=== PATIENT | female | born 1955 | race Caucasian/White ===

== ENCOUNTER 2016-06-10 10:25 | Emergency (ER) | payer OTHER ==
[~2016-06-10] VITALS: Ht 160 cm; Wt 85.5 kg
[~2016-06-10 10:25] MED LIST: FLNIN NAE
[2016-06-10 10:34] VITALS: TEMP 37.6; Ht 160 cm; Wt 85.5 kg
[2016-06-10] MEDS ORDERED: ALBUT/IPRATROP 3MG/0.5MG NEB 3 ML VIAL INH STA (11:10)
[2016-06-10] MEDS ORDERED: ONDANSETRON INJ 2 MG/ML 2 ML VIAL IV STA (11:10)
[2016-06-10] MEDS ORDERED: ACETAMINOPHEN 500 MG TAB PO STA (11:10)
[2016-06-10] MEDS ORDERED: GI COCKTAIL PO ONE (11:15)
[2016-06-10] MEDS ORDERED: PSEU60TA80 PO (11:23)
[2016-06-10] MEDS ORDERED: IBUP-103 PO (11:23)
[2016-06-10] MEDS ORDERED: LIDOCAINE HCL 2% VISC SOLN 20 ML UDC ONE (11:33)
[2016-06-10] MEDS ORDERED: ALUMINUM/MAGNESIUM SUSP 30 ML UDC ONE (11:33)
[2016-06-10 12:13] LABS: BASO % 0.2 %; BASO ABS # 0.02 K/uL (0-0.2); COMPLETE YES; EOS % 0.2 %; HEMATOCRIT 39.8 % (37-47); IG% 0.2 %; LYMPH % 9.6 %; LYMPH ABS # 0.85 K/uL (1.2-3.4); MEAN CELL VOLUME 93.6 fL (80-100); MEAN CORPUSCULAR HEMOGLOBIN 33.2 pg (25-34); MEAN CORPUSCULAR HGB CONC 35.4 g/dl (32-36); MEAN PLATELET VOLUME 9.6 fL (7.4-10.4); MONO % 9.8 %; PLATELET COUNT 262 K/uL (130-400); RED BLOOD COUNT 4.25 M/uL (4.2-5.4); WHITE BLOOD COUNT 8.85 K/uL (4.8-10.8)
[2016-06-10 12:19] LABS: POINT OF CARE TROPONIN I 0.01 ng/ml (0-0.045)
[2016-06-10 12:34] LABS: URINE APPEARANCE CLOUDY (CLEAR); URINE COLOR DK YELLOW; URINE EPITHELIAL CELL AUTO >30 /lpf (0-5); URINE NITRITE NEG (NEG); URINE SPECIFIC GRAVITY 1.043 (1.000-1.030); UROBILINOGEN NEG (NEG)
[2016-06-10 12:52] LABS: ALT/SGPT 36 U/L (12-78); AST/SGOT 18 U/L (15-37); BLOOD UREA NITROGEN 15 mg/dl (7-18); BUN/CREATININE RATIO 15.8 (10-20); CALCIUM 8.8 mg/dl (8.5-10.1); CARBON DIOXIDE 23 mmol/L (21-32); CHLORIDE 104 mmol/L (98-107); CREATININE 0.94 mg/dl (0.60-1.20); GLUCOSE 100 mg/dl (70-99); POTASSIUM 3.8 mmol/L (3.5-5.1); SODIUM 139 mmol/L (136-145)
[2016-06-10 12:55] LABS: MANUAL MICROSCOPIC REQUIRED? NO; REVIEW REQ? YES; URINE BILIRUBIN NEG (NEG)
[2016-06-10 12:56] LABS: ALB/GLOB RATIO 1.2 (0.9-2); ALKALINE PHOSPHATASE 77 U/L (45-117)
--- NOTE | 2016-06-10 13:00 | DIAGNOSTIC IMAGING REPORT ---
TWO VIEW CHEST CLINICAL HISTORY: Dyspnea. FINDINGS: PA and lateral chest radiographs are compared to study dated 02/19/2011. The cardiomediastinal silhouette is unremarkable. The lungs and pleural spaces are clear. There is no pneumothorax. The skeletal structures are osteopenic. The bony thorax appears intact. IMPRESSION: No active disease in the chest. Electronically signed by: Sander Jacobs M.D. 06/10/2016 12:58 PM
[2016-06-10] MEDS ORDERED: OSEL75CA12 PO (13:47)
[2016-06-10 14:04] VITALS: BP 105/76; PULSE 74; O2SAT 95
--- NOTE | 2016-06-11 21:55 | EMERGENCY ROOM VISIT NOTE ---
ED Visit Note First contact with patient: 11:01 Chief Complaint: Cough, chest discomfort and fever. History of Present Illness: Ms. Kellogg is a 60-year-old white female who ambulates into the ED complaining of cough, chest tightness and burning and fever. Historically patient reports she has a history of bronchitis and pneumonia but no chronic pulmonary diseases. Patient reports she has not been feeling well since Thanks. She reports she's been having a mild cough, sinus pressure, and nasal drainage. She was seen once by her PCP and was felt to have a sinus infection and was prescribed amoxicillin. She did not think this resolved any of her symptoms. Patient reports over last 12-24 hours she reports her symptoms have exacerbated and she has developed a fever with her cough. Additionally she reports she is now having a chest tightness and burning sensation through the mid sternal area. She rates this discomfort 8/10. The pain is nonradiating. Pain worsens with cough. She has not identified any alleviating factors related to the pain. She has taken ibuprofen for her fever but had no relief of her chest discomfort. Associated with her pain and cough she reports that she is minimally productive of a clearish sputum, intermittently she hears herself wheezing, she has nausea but has not vomited and last night she developed a fever. She denies skin eruptions, skin color changes, headache, neck/back pain, palpitations, orthopnea, dependent edema, dyspnea on exertion, hemoptysis, abdominal pain, decreased appetite, urinary symptoms, hematuria, diarrhea, constipation, previous clots, claudication, cramping, recent surgery/inactivity ; she does report she returns from a trip to [place] approximately 2 months ago. Review of Systems: As noted above in history of present illness. All body systems were reviewed and found to be negative as noted above. Past Medical History: As previously noted, unspecified knee and ankle surgeries , hysterectomy. Current Medications: Ibuprofen, Mucinex D. Allergies to Medications: Tetracycline and sulfa. Social History: Patient is currently employed; she lives the and feels safe in her home environment; she denies tobacco use and admits to alcohol use. Physical Examination: Vital Signs: Date Time Temp Pulse Resp B/P Pulse Ox O2 Delivery O2 Flow Rate FiO2 06/10/16 14:04 74 20 105/76 95 Room Air 06/10/16 13:30 80 20 139/71 91 Room Air 06/10/16 11:42 94 06/10/16 11:39 99 13 142/94 94 Room Air 06/10/16 10:34 37.6 105 19 161/95 94 Room Air GENERAL: 60-year-old female in mild distress due to pain and symptoms, nontoxic- appearing, afebrile and hemodynamically stable. NEUROLOGICAL: Awake, alert and oriented to person, place and time. Answering questions appropriately and following commands. Normal gait. Good hand eye coordination. No focal motor sensory deficits. SKIN: Warm, dry and pink. No soft tissue eruptions or trauma noted. HEENT: Atraumatic and normocephalic. No erythema or tenderness over the frontal or maxillary sinuses. PERRLA. Sclera white and conjunctiva pink. No drainage from naris, but audible congestion. Oral cavity moist and pink. Airway patent. Uvula midline and no abscesses are seen. Pharynx is nonerythematous or edematous. Speech clear and normal. No lymphadenopathy. Trachea midline. No jugular venous distention. BACK: No tenderness over the bony cervical and thoracic spine. Full range of motion of the cervical spine. No CVA tenderness. THORAX: Lungs sounds are clear to auscultation but decreased bilaterally primarily in the bases. Equal bilaterally with symmetrical chest wall. No wheezing, rales or rhonchi. Mild tenderness throughout the mid sternal area without bony deformity, bony crepitus or subcutaneous air. No increase in respiratory rate or effort. HEART: Tachycardic rate and rhythm. No gallops, rubs or murmurs are appreciated. ABDOMEN: Flat, soft and nontender. Positive bowel sounds in all quadrants. No guarding, rigidity or organomegaly. EXTREMITIES: Moves all extremities well on command and with purpose. All distal neurovascular statuses are intact and equal bilaterally. No calf tenderness or cords. ED Course: Patient is assessed as noted above. Laboratory testing: Test 06/10/16 11:00 06/10/16 11:40 06/10/16 11:55 06/10/16 12:00 Range/Units Urine Color DK YELLOW Urine Appearance CLOUDY CLEAR Urine pH 5.0 4.5-7.5 Urine Specific [place] 1.043 1.000-1.030 Urine Protein 1+ NEG Urine Glucose (UA) NEG NEG Urine Ketones TRACE NEG Urine Occult Blood 1+ NEG Urine Nitrite NEG NEG Urine Bilirubin NEG NEG Urine Urobilinogen NEG NEG Urine Leukocyte Esterase MODERATE NEG Urine WBC (Auto) >30 0-5 /hpf Urine RBC (Auto) 0-4 0-4 /hpf Urine Hyaline Casts (Auto) 1-5 0-5 /lpf Urine Epithelial Cells (Auto) >30 0-5 /lpf Urine Bacteria (Auto) 2+ NEG Urine Pathogenic Casts 0 /lpf Urine Yeast (Auto) NONE PRSENT Influenza Type A Antigen POS for Influ A NEG Influenza Type B Antigen Neg for Influ B NEG White Blood Count 8.85 4.8-10.8 K/uL Red Blood Count 4.25 4.2-5.4 M/uL Hemoglobin 14.1 12.0-16.0 g/dL Hematocrit 39.8 37-47 % Mean Corpuscular Volume 93.6 80-100 fL Mean Corpuscular Hemoglobin 33.2 25-34 pg Mean Corpuscular Hemoglobin Concent 35.4 32-36 g/dl Platelet Count 262 130-400 K/uL Mean Platelet Volume 9.6 7.4-10.4 fL Neutrophils (%) (Auto) 80.0 % Lymphocytes (%) (Auto) 9.6 % Monocytes (%) (Auto) 9.8 % Eosinophils (%) (Auto) 0.2 % Basophils (%) (Auto) 0.2 % Neutrophils # (Auto) 7.07 1.4-6.5 K/uL Lymphocytes # (Auto) 0.85 1.2-3.4 K/uL Monocytes # (Auto) 0.87 0.11-0.59 K/uL Eosinophils # (Auto) 0.02 0-0.5 K/uL Basophils # (Auto) 0.02 0-0.2 K/uL RDW Standard Deviation 44.2 36.4-46.3 fL RDW Coefficient of Variation 12.9 11.5-14.5 % Immature Granulocyte % (Auto) 0.2 % Immature Granulocyte # (Auto) 0.02 0.00-0.02 K/uL Sodium Level 139 136-145 mmol/L Potassium Level 3.8 3.5-5.1 mmol/L Chloride Level 104 98-107 mmol/L Carbon Dioxide Level 23 21-32 mmol/L Anion Gap 12.0 3-11 mmol/L Blood Urea Nitrogen 15 7-18 mg/dl Creatinine 0.94 0.60-1.20 mg/dl Est Creatinine Clear Calc Drug Dose 67.6 ml/min Estimated GFR () 77.5 Estimated GFR (Non- 66.9 BUN/Creatinine Ratio 15.8 10-20 Random Glucose 100 70-99 mg/dl Calcium Level 8.8 8.5-10.1 mg/dl Total Bilirubin 0.5 0.2-1 mg/dl Aspartate Amino Transf (AST/SGOT) 18 15-37 U/L Alanine Aminotransferase (ALT/SGPT) 36 12-78 U/L Alkaline Phosphatase 77 45-117 U/L Total Creatine Kinase 101 26-192 U/L Creatine Kinase MB < 0.5 0.5-3.6 ng/ml Creatine Kinase MB Ratio 0-3.0 Total Protein 7.2 6.4-8.2 gm/dl Albumin 3.9 3.4-5.0 gm/dl Globulin 3.3 2.5-4.0 gm/dl Albumin/Globulin Ratio 1.2 0.9-2 Bedside D-Dimer 253 0-450 ng/mlFEU Bedside Troponin I 0.010 0-0.045 ng/ml Chest x-rays: Was read by myself and the radiologist showing no acute infiltrates, effusions or pneumothorax. Stable heart silhouette and skeletal structures are osteopenic. EKG: Was read by myself and reviewed with Dr. Jc; shows normal sinus rhythm with a ventricular rate of 86 bpm. Normal axis and complexes. Nonspecific T-wave abnormalities but no signs of acute ischemia, injury or infarction. Patient was hydrated with normal saline, she received an albuterol/Atrovent nebulizer breathing treatment, 30 mg of Toradol IV for pain, 4 mg of Zofran IV for nausea and a GI cocktail. Patient was reassessed multiple times during her stay in the emergency department. Patient's case was reviewed with Dr. Jc; he independently assessed the patient we agreed on diagnostic approach, treatment, disposition and plan. Patient was educated about tonight's findings and instructed on her treatment plan; she verbalizes understanding and agreement with this plan. Clinical Impression: Influenza A. Decision-Making: Initially my differential diagnosis I considered pneumonia, bronchitis, pulmonary embolism, acute coronary syndrome, pericarditis, influenza , musculoskeletal disorder and other causes. Disposition: Patient discharged home in stable condition accompanied by her family; prior to departure she was reassessed and subjectively reported she was feeling much better. Plan: Patient was prescribed Tamiflu 75 mg 2 times a day for 5 days. Patient was encouraged to alternate ibuprofen and acetaminophen as needed for pain or fevers. Patient was encouraged to continue her current cough medicine as needed. Patient was sleeping with her head elevated for congestion. Patient was encouraged to limit her exposure to other people until she is fever free for 24 hours. Patient was encouraged to follow-up with family physician for recheck in 2-3 days. Patient was encouraged return ED for worsening symptoms, uncontrolled fevers or any new/concerning symptoms.
== END 2016-06-10 14:25 | disposition home or self-care (01) ==
LOC: C.EDB 10:27 → C.EDC 14:25
DX: J09.X2 Influenza due to identified novel influenza A virus with other respiratory manifestations (principal); Z87.01 Personal history of pneumonia (recurrent); Z90.710 Acquired absence of both cervix and uterus; Z88.1 Allergy status to other antibiotic agents; Z88.2 Allergy status to sulfonamides; M85.80 Other specified disorders of bone density and structure, unspecified site